=== PATIENT | male | born 1985 | race African-American/Black ===

== ENCOUNTER 2020-12-28 17:35 | Observation (INO) ==
--- NOTE | 2020-12-28 18:12 | CT Scan Report ---
HEAD CT NONCONTRAST CT DOSE: 574.70 mGycm HISTORY: Stroke symptoms. TECHNIQUE: Multiaxial CT images of the head were performed without the use of intravenous contrast. A utomated exposure control was utilized for this study. A dose lowering technique was utilized adheri ng to the principles of ALARA. Comparison: None. Findings: The paranasal sinuses and mastoid air cells are clear. The calvarium and skull base are int act. The ventricles and sulci are within normal limits. There is no mass, hematoma, midline shift, or acute infarct. Impression: No acute intracranial abnormality. ACT 112: Negative or not required by law. Electronically signed by: Homero Castel M.D. 12/28/2020 6:11 PM
[2020-12-28] MEDS ORDERED: OPTIRAY 320 125ml IV ONE (18:14)
--- NOTE | 2020-12-28 18:30 | Emergency Department Note ---
Impression & Plan Right facial numbness, Stroke-like symptoms, Lyme disease, Anemia ED Provider Note NAME: MALLY CHAUDHRY AGE: 35 SEX: M : 1985 ARRIVES VIA: Walk-In INFORMANT: [Patient] ED PROVIDER(S): [Jin Pollard MD] Patient was first seen by me at 1800. CHIEF COMPLAINT: Stroke symptoms HISTORY OF PRESENT ILLNESS: The patient is a 35-year-old male who presents to the ED with potential stroke symptoms. He has had about 15 hours of a right facial numbness and fullness. He noticed it first at around 3 AM. He had a mild headache earlier this morning. He had not taken his blood pressure medication so he took his medication. His symptoms of numbness and heaviness to the right face persisted throughout the day and he presents for evaluation. He really does not have much of a headache anymore. He has no chest pain or shortness of breath. There has been no arm or leg weakness. No difficulty with speech or with his balance. Patient has a history of being quite ill with COVID-19. He was in the ICU ventilated. He was told that he may have had a stroke as a result of the Covid infection and that he had also had a seizure. He was on seizure meds for a while but no longer takes those. The patient was in baseline health last night before going to bed. REVIEW OF SYSTEMS: See HPI for pertinent positives and negatives. A total of ten systems were reviewed and were otherwise negative. PMHx/PSHx: See Below SOCIAL HISTORY: See Below. PHYSICAL EXAM: GENERAL: Patient is in no acute distress. HEENT: No acute trauma, normocephalic atraumatic, mucous membranes moist, no nasal congestion, no scleral icterus. He blinks normally. He can close his eyes without difficulty. The frontalis muscle is intact bilaterally. NECK: No stridor, no adenopathy, no meningismus, trachea is midline. LUNGS: Clear to auscultation bilaterally, no wheeze, no rhonchi, breath sounds equal. HEART: Without murmurs gallops or rubs, regular rate and rhythm. ABDOMEN: Soft, nontender, bowel sounds positive, no hernias, no peritonitis. EXTREMITIES: No cyanosis or edema, full range of motion of all the joints without pain or difficulty, no signs for acute trauma. NEUROLOGIC: Oriented x 3, no acute motor or sensory deficits, no focal weakness. No facial droop or speech slur. No extremity drift, no cerebellar dysfunction. SKIN: No rash, no jaundice, no diaphoresis. DIFFERENTIAL DIAGNOSIS: Infection, dehydration, metabolic abnormality, hypo/hyperglycemia, electrolyte disturbance, anemia, Lyme disease, Waytt's palsy, hypoxia, cardiac sources, intracerebral event, toxicologic issues, stroke, TIA, as well as other pathologies. EMERGENCY DEPARTMENT COURSE/PROCEDURES: ECG: Indication was possible stroke. The ECG shows a normal sinus rhythm with a rate of 75. There is some nonspecific ST change. No concerning ST elevation. No PVCs. The QTc is 433. Continuous Cardiac Monitoring: An order was placed for continuous cardiac monitoring. The monitor shows a rate of 72 with normal sinus rhythm. Critical Care Note: I have personally spent 41 minutes of critical care time in the direct management of this patient. This includes bedside care, inte rpretation of diagnostic studies, and testing, discussion with consultants, patient, and family members, and other required patient management activities. This 41 minutes is in excess of all separately billable procedures. MEDICAL DECISION MAKING: There is no leukocytosis. The patient does have a mild anemia. There is a normal platelet count. No coagulopathy. There was an elevation to the creatinine of 1.68. No significant electrolyte abnormality in need of emergent correction. There were a few subtle liver enzyme elevations however, the bilirubin was normal. ECG showed a sinus rhythm, no acute ischemia. Cardiac enzyme testing x1 is not consistent with acute cardiac injury. Lyme disease testing showed a positive IgM, the IgG was negative. Covid testing returned negative. Brain CT showed no acute bleed or mass-effect. CT angio of the brain and neck were performed, there was no significant stenosis or occlusion. On exam, there were no focal neurologic findings. The patient complained of right facial numbness. There was no facial droop. Patient received IV saline, 1 L. He was given a dose of oral Plavix, 300 mg. The patient was made a stroke alert at triage. The [facility] stroke neurologist did evaluate the patient via telemedicine. She did recommend the Plavix dosing. Patient requires a hospital stay for further stroke work-up. I spoke to the patient, I spoke with case management. The on-call hospitalist was consulted. A small stroke is a consideration for his presentation. Early Wyatt's palsy as a result of Lyme disease is also a possibility. Of note, the patient is not a candidate for TPA, he has had symptoms now for over 15 hours. He is out of the TPA window. Past Med/Surg History Medical History COVID-19 Hypertension Social History Smoking Status: Light tobacco smoker Hx Alcohol Use: Yes Alcohol type: beer Hx Substance Use: No Preferred Language: Turkmen Scientific Affairs Manager Required: No Beliefs That Will Affect Care: None Current Living Situation: Alone Feels Safe at Home: Yes Safety Concerns: Feels Safe At This Time Assistive Devices: None Home Meds Home Medications Medication Instructions Recorded Confirmed amlodipine 10 mg tablet 10 mg PO DAILY 12/28/20 12/28/20 aspirin 81 mg tablet,delayed 81 mg PO DAILY 12/28/20 12/28/20 release (Aspirin Low Dose) atorvastatin 20 mg tablet (Lipitor) 20 mg PO HS 12/28/20 12/28/20 budesonide-formoterol HFA 160 2 puff INHALATION BID 12/28/20 12/28/20 mcg-4.5 mcg/actuation aerosol inhaler (Symbicort) fluticasone propionate 50 1 spray INTRANASAL DAILY 12/28/20 12/28/20 mcg/actuation nasal spray,suspension ibuprofen 200 mg tablet 200 mg PO Q6H PRN 12/28/20 12/28/20 levetiracetam 500 mg tablet 500 mg PO BID 12/28/20 12/28/20 (Keppra) losartan 100 mg tablet 100 mg PO DAILY 12/28/20 12/28/20 melatonin 10 mg disintegrating 10 mg PO HS PRN 12/28/20 12/28/20 tablet metoprolol succinate 100 mg 200 mg PO DAILY 12/28/20 12/28/20 tablet,extended release 24 hr (Toprol XL) multivitamin with minerals-folic 1 tab PO DAILY 12/28/20 12/28/20 acid 200 mcg chewable tablet (Multivitamin Gummies) pantoprazole 40 mg tablet,delayed 40 mg PO BID 12/28/20 12/28/20 release (Protonix) Results & Data (ED) Vital Signs Vital Signs - 24 hr 12/28/20 17:53 12/28/20 18:21 12/28/20 18:25 Temperature 36.9 C Temperature Source Temporal Artery Scan Pulse Rate 74 72 Pulse Rate from SpO2 Sensor Respiratory Rate 18 20 Respiratory Effort / Characteristics Non-Labored Respiratory Depth Normal Blood Pressure 130/79 148/88 H Blood Pressure [Left Arm] Blood Pressure Mean 96 108 Blood Pressure Mean [Left Arm] Pulse Oximetry 98 98 Oxygen Delivery Method Room Air Room Air Sepsis Recent Fever Within 48 Hours No Sepsis New/Unexplained Change in Mental Status No Sepsis Action Taken by Nursing No Action Required 12/28/20 18:26 12/28/20 18:31 12/28/20 18:46 Temperature Temperature Source Pulse Rate 66 69 Pulse Rate from SpO2 Sensor 68 Respiratory Rate 18 Respiratory Effort / Characteristics Respiratory Depth Blood Pressure 146/71 H 159/35 H Blood Pressure [Left Arm] Blood Pressure Mean 96 76 Blood Pressure Mean [Left Arm] Pulse Oximetry 96 99 Oxygen Delivery Method Room Air Room Air Sepsis Recent Fever Within 48 Hours Sepsis New/Unexplained Change in Mental Status Sepsis Action Taken by Nursing 12/28/20 19:01 12/28/20 19:53 12/28/20 20:00 Temperature Temperature Source Pulse Rate 63 54 L 67 Pulse Rate from SpO2 Sensor 64 Respiratory Rate 17 23 Respiratory Effort / Characteristics Respiratory Depth Blood Pressure 129/68 Blood Pressure [Left Arm] Blood Pressure Mean 88 Blood Pressure Mean [Left Arm] Pulse Oximetry 97 Oxygen Delivery Method Room Air Sepsis Recent Fever Within 48 Hours Sepsis New/Unexplained Change in Mental Status Sepsis Action Taken by Nursing 12/28/20 20:08 12/28/20 20:30 12/28/20 21:01 Temperature Temperature Source Pulse Rate 61 63 Pulse Rate from SpO2 Sensor 62 63 Respiratory Rate 22 21 Respiratory Effort / Characteristics Respiratory Depth Blood Pressure 134/78 119/69 Blood Pressure [Left Arm] 119/70 Blood Pressure Mean 96 85 Blood Pressure Mean [Left Arm] 86 Pulse Oximetry 99 98 Oxygen Delivery Method Sepsis Recent Fever Within 48 Hours Sepsis New/Unexplained Change in Mental Status Sepsis Action Taken by Shelter Medications Current Medication List: was personally reviewed by me Laboratory Data Attestation: I reviewed the patient's lab results. Result diagrams: 12/28/20 18:31 12/28/20 18:31 Lab Results 12/28/20 12/28/20 12/28/20 Range/Units 18:31 18:31 18:31 WBC 9.74 (4.8-10.8) K/uL RBC 4.83 (4.7-6.1) M/uL Hgb 12.8 L (14.0-18.0) g/dL POC Hgb (14.0-18.0) g/dl Hct 38.3 L (42-52) % POC Hct (42-52) % MCV 79.3 L (80-100) fL MCH 26.5 (25-34) pg MCHC 33.4 (32-36) g/dL RDW Std Deviation 39.3 (36.4-46.3) fL RDW Coeff of Norris 13.8 (11.5-14.5) % Plt Count 349 (130-400) K/uL MPV 8.9 (7.4-10.4) fL PT 10.8 (9.0-12.0) Seconds INR 1.1 (0.9-1.1) APTT 25.7 (21.0-31.0) Seconds PTT Ratio 1.0 POC Sodium (135-144) mmol/L Sodium 139 (136-145) mmol/L POC Potassium (3.3-5.0) mmol/L Potassium 3.5 (3.5-5.1) mmol/L POC Chloride (101-112) mmol/L Chloride 107 (98-107) mmol/L Carbon Dioxide 26 (21-32) mmol/L POC Total CO2 (24-31) mmol/L Anion Gap 6.0 (3-11) POC Anion Gap (16-25) mmol/L POC BUN (7-18) mg/dl BUN 13 (7-18) mg/dl Creatinine 1.68 H (0.6-1.4) mg/dl POC Creatinine (0.6-1.3) mg/dl Est Cr Clr Drug Dosing 70.9 ml/min Est GFR ( Amer) 59.3 ml/min Est GFR (Non-Af Amer) 51.1 ml/min BUN/Creatinine Ratio 7.5 L (10-20) Glucose 131 H (70-99) mg/dl POC Glucose (other) (70-99) mg/dl Calcium 8.6 (8.5-10.1) mg/dl POC Ioniz Calcium Kris (1.12-1.32) mmol/l Magnesium 2.0 (1.8-2.4) mg/dl Total Bilirubin 0.4 (0.2-1) mg/dl AST 90 H (15-37) U/L ALT 192 H (12-78) U/L Alkaline Phosphatase 72 (45-117) U/L Troponin I < 0.015 (0-0.045) ng/ml Total Protein 7.9 (6.4-8.2) gm/dl Albumin 4.0 (3.4-5.0) gm/dl Globulin 3.9 (2.5-4.0) gm/dl Albumin/Globulin Ratio 1.0 (0.9-2) Lyme Disease IgG Ab (Negative) Lyme Disease IgM Ab (Negative) COVID-19 Eval Order SARS-CoV-2 (PCR) (Negative) 12/28/20 12/28/20 12/28/20 Range/Units 18:31 18:34 18:34 WBC (4.8-10.8) K/uL RBC (4.7-6.1) M/uL Hgb (14.0-18.0) g/dL POC Hgb (14.0-18.0) g/dl Hct (42-52) % POC Hct (42-52) % MCV (80-100) fL MCH (25-34) pg MCHC (32-36) g/dL RDW Std Deviation (36.4-46.3) fL RDW Coeff of Norris (11.5-14.5) % Plt Count (130-400) K/uL MPV (7.4-10.4) fL PT (9.0-12.0) Seconds INR (0.9-1.1) APTT (21.0-31.0) Seconds PTT Ratio POC Sodium (135-144) mmol/L Sodium (136-145) mmol/L POC Potassium (3.3-5.0) mmol/L Potassium (3.5-5.1) mmol/L POC Chloride (101-112) mmol/L Chloride (98-107) mmol/L Carbon Dioxide (21-32) mmol/L POC Total CO2 (24-31) mmol/L Anion Gap (3-11) POC Anion Gap (16-25) mmol/L POC BUN (7-18) mg/dl BUN (7-18) mg/dl Creatinine (0.6-1.4) mg/dl POC Creatinine (0.6-1.3) mg/dl Est Cr Clr Drug Dosing ml/min Est GFR ( Amer) ml/min Est GFR (Non-Af Amer) ml/min BUN/Creatinine Ratio (10-20) Glucose (70-99) mg/dl POC Glucose (other) (70-99) mg/dl Calcium (8.5-10.1) mg/dl POC Ioniz Calcium Kris (1.12-1.32) mmol/l Magnesium (1.8-2.4) mg/dl Total Bilirubin (0.2-1) mg/dl AST (15-37) U/L ALT (12-78) U/L Alkaline Phosphatase (45-117) U/L Troponin I (0-0.045) ng/ml Total Protein (6.4-8.2) gm/dl Albumin (3.4-5.0) gm/dl Globulin (2.5-4.0) gm/dl Albumin/Globulin Ratio (0.9-2) Lyme Disease IgG Ab Negative (Negative) Lyme Disease IgM Ab Positive A (Negative) COVID-19 Eval Order Covid19 at [facility] SARS-CoV-2 (PCR) NEGATIVE (Negative) 12/28/20 Range/Units 18:37 WBC (4.8-10.8) K/uL RBC (4.7-6.1) M/uL Hgb (14.0-18.0) g/dL POC Hgb 13.6 L (14.0-18.0) g/dl Hct (42-52) % POC Hct 40 L (42-52) % MCV (80-100) fL MCH (25-34) pg MCHC (32-36) g/dL RDW Std Deviation (36.4-46.3) fL RDW Coeff of Norris (11.5-14.5) % Plt Count (130-400) K/uL MPV (7.4-10.4) fL PT (9.0-12.0) Seconds INR (0.9-1.1) APTT (21.0-31.0) Seconds PTT Ratio POC Sodium 141 (135-144) mmol/L Sodium (136-145) mmol/L POC Potassium 3.7 (3.3-5.0) mmol/L Potassium (3.5-5.1) mmol/L POC Chloride 101 (101-112) mmol/L Chloride (98-107) mmol/L Carbon Dioxide (21-32) mmol/L POC Total CO2 26 (24-31) mmol/L Anion Gap (3-11) POC Anion Gap 19.0 (16-25) mmol/L POC BUN 13 (7-18) mg/dl BUN (7-18) mg/dl Creatinine (0.6-1.4) mg/dl POC Creatinine 1.5 H (0.6-1.3) mg/dl Est Cr Clr Drug Dosing ml/min Est GFR ( Amer) ml/min Est GFR (Non-Af Amer) ml/min BUN/Creatinine Ratio (10-20) Glucose (70-99) mg/dl POC Glucose (other) 133 H (70-99) mg/dl Calcium (8.5-10.1) mg/dl POC Ioniz Calcium Kris 1.18 (1.12-1.32) mmol/l Magnesium (1.8-2.4) mg/dl Total Bilirubin (0.2-1) mg/dl AST (15-37) U/L ALT (12-78) U/L Alkaline Phosphatase (45-117) U/L Troponin I (0-0.045) ng/ml Total Protein (6.4-8.2) gm/dl Albumin (3.4-5.0) gm/dl Globulin (2.5-4.0) gm/dl Albumin/Globulin Ratio (0.9-2) Lyme Disease IgG Ab (Negative) Lyme Disease IgM Ab (Negative) COVID-19 Eval Order SARS-CoV-2 (PCR) (Negative) Administered Medications Discontinued Medications Clopidogrel Bisulfate (Clopidogrel Bisulfate 300 Mg Tab) 300 mg PO NOW STA Stop: 12/28/20 19:54 Last Admin: 12/28/20 20:07 Dose: 300 mg Documented by: [id number] Sodium Chloride (Nss 1000ml) 1,000 mls @ 999 mls/hr IV .Q1H1M ONE Stop: 12/28/20 20:09 Last Infusion: 12/28/20 20:48 Dose: 0 mls/hr Documented by: [id number] Admin: 12/28/20 19:27 Dose: 999 mls/hr Documented by: [id number] Ceftriaxone Sodium (Rocephin) 2,000 mg in 70 mls @ 140 mls/hr IV NOW STA Stop: 12/28/20 21:41 Last Infusion: 12/28/20 22:21 Dose: 0 mls/hr Documented by: [id number] Admin: 12/28/20 21:22 Dose: 140 mls/hr Documented by: [id number] Ioversol (Optiray 320 125ml) 119 ml IV ONCE ONE Stop: 12/28/20 18:15 Last Admin: 12/28/20 18:15 Dose: 1 ml Documented by: [id number] Imaging Data Radiologist's Impression: Chest X-Ray 12/28/20 17:58 XR chest 1V portable HISTORY: Stroke symptoms. COMPARISON: None. FINDINGS: The lungs are clear. Cardiac silhouette is top normal in size. No pleural effusions. No pneumothorax. IMPRESSION: No acute process. ACT 112: Negative or not required by law. Electronically signed by: Homero Castle M.D. 12/28/2020 6:[address] 12/28/20 17:[address] DOSE: 574.70 mGycm HISTORY: Stroke symptoms. TECHNIQUE: Multiaxial CT images of the head were performed without the use of intravenous contrast. Automated exposure control was utilized for this study. A dose lowering technique was utilized adhering to the principles of ALARA. Comparison: None. Findings: The paranasal sinuses and mastoid air cells are clear. The calvarium and skull base are intact. The ventricles and sulci are within normal limits. There is no mass, hematoma, midline shift, or acute infarct. Impression: No acute intracranial abnormality. ACT 112: Negative or not required by law. Electronically signed by: Homero Castle M.D. 12/28/2020 6:11 PM Head CTA 12/28/20 18:02 HEAD & NECK CTA HISTORY: Stroke symptoms. TECHNIQUE: Multiaxial CT images of the head were performed following the intravenous administration of contrast to evaluate the major cerebral vessels. Multiaxial CT images of the neck were also performed following the intravenous administration of contrast to evaluate the major cervical vessels. Maximum i ntensity projection images were also obtained. A dose lowering technique was utilized adhering to the principles of ALARA. COMPARISON: Noncontrast head CT 12/28/2020. FINDINGS: There is no mass, hematoma, midline shift, or acute infarct. Visualized intracranial internal carotid arteries, distal vertebral arteries, and basilar artery are widely patent. There is no significant stenosis, occlusion, or aneurysm seen within the bilateral ACAs, MCAs, or merchandise executive. The aortic arch and proximal great vessels are widely patent. There is no significant stenosis, occlusion, or dissection identified within the bilateral common carotid, internal carotid, or vertebral arteries. The major dural venous sinuses are patent. IMPRESSION: 1. No significant stenosis, occlusion, or aneurysm within the three [place] of [place]. 2. No significant stenosis, occlusion, or dissection identified within the carotid or vertebral arteries. ACT 112: Negative or not required by law. Electronically signed by: Homero Castle M.D. 12/28/2020 6:32 PM Neck CTA 12/28/20 18:02 HEAD & NECK CTA HISTORY: Stroke symptoms. TECHNIQUE: Multiaxial CT images of the head were performed following the intravenous administration of contrast to evaluate the major cerebral vessels. Multiaxial CT images of the neck were also performed following the intravenous administration of contrast to evaluate the major cervical vessels. Maximum intensity projection images were also obtained. A dose lowering technique was utilized adhering to the principles of ALARA. COMPARISON: Noncontrast head CT 12/28/2020. FINDINGS: There is no mass, hematoma, midline shift, or acute infarct. Visualized intrac ranial internal carotid arteries, distal vertebral arteries, and basilar artery are widely patent. There is no significant stenosis, occlusion, or aneurysm seen within the bilateral ACAs, MCAs, or merchandise executive. The aortic arch and proximal great vessels are widely patent. There is no significant stenosis, occlusion, or dissection identified within the bilateral common carotid, internal carotid, or vertebral arteries. The major dural venous sinuses are patent. IMPRESSION: 1. No significant stenosis, occlusion, or aneurysm within the three affiliated of [place]. 2. No significant stenosis, occlusion, or dissection identified within the carotid or vertebral arteries. ACT 112: Negative or not required by law. Electronically signed by: Homero Castle M.D. 12/28/2020 6:32 PM Discharge Plan Visit Data Chief Complaint: Stroke/CVA Symptoms Stated Complaint: SOB, LEFT SIDE OF FACE HURTS, HEADACHE ED Provider: Jin Pollard Discharge Problem: Right facial numbness, Stroke-like symptoms, Lyme disease, Anemia Patient Disposition: Admitted As Inpatient Condition: Fair
--- NOTE | 2020-12-28 18:34 | CT Scan Report ---
HEAD & NECK CTA HISTORY: Stroke symptoms. TECHNIQUE: Multiaxial CT images of the head were performed following the intravenous administration o f contrast to evaluate the major cerebral vessels. Multiaxial CT images of the neck were also perform ed following the intravenous administration of contrast to evaluate the major cervical vessels. Maxim um intensity projection images were also obtained. A dose lowering technique was utilized adhering to the principles of ALARA. COMPARISON: Noncontrast head CT 12/28/2020. FINDINGS: There is no mass, hematoma, midline shift, or acute infarct. Visualized intracranial internal carotid arteries, distal vertebral arteries, and basilar artery are widely patent. There is no significant s tenosis, occlusion, or aneurysm seen within the bilateral ACAs, MCAs, or senior clinical study manager. The aortic arch and proximal great vessels are widely patent. There is no significant stenosis, occ lusion, or dissection identified within the bilateral common carotid, internal carotid, or vertebral arteries. The major dural venous sinuses are patent. IMPRESSION: 1. No significant stenosis, occlusion, or aneurysm within the [place]. 2. No significant stenosis, occlusion, or dissection identified within the carotid or vertebral arter ies. ACT 112: Negative or not required by law. Electronically signed by: Homero Castle M.D. 12/28/2020 6:32 PM
--- NOTE | 2020-12-28 18:34 | CT Scan Report ---
HEAD & NECK CTA HISTORY: Stroke symptoms. TECHNIQUE: Multiaxial CT images of the head were performed following the intravenous administration o f contrast to evaluate the major cerebral vessels. Multiaxial CT images of the neck were also perform ed following the intravenous administration of contrast to evaluate the major cervical vessels. Maxim um intensity projection images were also obtained. A dose lowering technique was utilized adhering to the principles of ALARA. COMPARISON: Noncontrast head CT 12/28/2020. FINDINGS: There is no mass, hematoma, midline shift, or acute infarct. Visualized intracranial internal carotid arteries, distal vertebral arteries, and basilar artery are widely patent. There is no significant s tenosis, occlusion, or aneurysm seen within the bilateral ACAs, MCAs, or counter checker. The aortic arch and proximal great vessels are widely patent. There is no significant stenosis, occ lusion, or dissection identified within the bilateral common carotid, internal carotid, or vertebral arteries. The major dural venous sinuses are patent. IMPRESSION: 1. No significant stenosis, occlusion, or aneurysm within the [place]. 2. No significant stenosis, occlusion, or dissection identified within the carotid or vertebral arter ies. ACT 112: Negative or not required by law. Electronically signed by: Homero Castle M.D. 12/28/2020 6:32 PM
--- NOTE | 2020-12-28 18:44 | XRay Report ---
XR chest 1V portable HISTORY: Stroke symptoms. COMPARISON: None. FINDINGS: The lungs are clear. Cardiac silhouette is top normal in size. No pleural effusions. No pne umothorax. IMPRESSION: No acute process. ACT 112: Negative or not required by law. Electronically signed by: Homero Castle M.D. 12/28/2020 6:43 PM
[2020-12-28 18:47] LABS: Hematocrit (blood only) 38.3 % (42-52); Hemoglobin 12.8 g/dL (14.0-18.0); Mean Corpuscular Hemoglobin 26.5 pg (25-34); Mean Corpuscular Hgb Conc 33.4 g/dL (32-36); Mean Corpuscular Volume 79.3 fL (80-100); Mean Platelet Volume 8.9 fL (7.4-10.4); Platelet Count 349 K/uL (130-400); RDW Coefficient of Variation 13.8 % (11.5-14.5); RDW Standard Deviation 39.3 fL (36.4-46.3); Red Blood Count 4.83 M/uL (4.7-6.1); White Blood Count 9.74 K/uL (4.8-10.8)
[2020-12-28 18:50] LABS: iSTAT Creatinine 1.5 mg/dl (0.6-1.3); iSTAT Hemoglobin 13.6 g/dl (14.0-18.0); iSTAT Ionized Calcium 1.18 mmol/l (1.12-1.32); iSTAT Potassium 3.7 mmol/L (3.3-5.0)
[2020-12-28 18:57] LABS: INR 1.1 (0.9-1.1); Partial Thromboplastin Time 25.7 Seconds (21.0-31.0); Prothrombin Time 10.8 Seconds (9.0-12.0)
[2020-12-28 19:08] LABS: Alanine Aminotransferase 192 U/L (12-78); Aspartate Aminotransferase 90 U/L (15-37); BUN Creatinine Ratio 7.5 (10-20); Blood Urea Nitrogen 13 mg/dl (7-18); Calcium 8.6 mg/dl (8.5-10.1); Carbon Dioxide 26 mmol/L (21-32); Chloride 107 mmol/L (98-107); Creatinine Clr Calc Pharmacy 70.9 ml/min; Est GFR (African American) 59.3 ml/min; Est GFR (Non-African American) 51.1 ml/min; Glucose 131 mg/dl (70-99); Potassium 3.5 mmol/L (3.5-5.1); Sodium 139 mmol/L (136-145)
[2020-12-28] MEDS ORDERED: SODIUM CHLORIDE 0.9% 1000ML 1,000 ML IV ONE (19:09)
[2020-12-28 19:11] LABS: Alkaline Phosphatase 72 U/L (45-117); Bilirubin,Total 0.4 mg/dl (0.2-1); Globulin 3.9 gm/dl (2.5-4.0); Total Protein 7.9 gm/dl (6.4-8.2)
[2020-12-28 19:19] LABS: Troponin I < 0.015 ng/ml (0-0.045)
[2020-12-28] MEDS ORDERED: CLOPIDOGREL BISULFATE 300 MG TAB PO STA (19:53)
[2020-12-28 19:59] LABS: Lyme Ab IgG w/WB Rflx Negative (Negative)
[2020-12-28 20:14] LABS: Lyme Ab IgM w/WB Rflx Positive (Negative)
[2020-12-28] MEDS ORDERED: cefTRIAXone SODIUM 2,000 MG/70 ML BAG IV STA (21:12)
--- NOTE | 2020-12-28 21:13 | History & Physical Report ---
Date of Service December 28, 2020 Assessment & Plan (1) Acute Lyme disease: Plan: IgM positive, IgG negative in the ED this evening May completely explain patient's symptoms. Place on ceftriaxone [address] on doxycycline 100 mg p.o. twice daily (2) Stroke-like symptoms: Plan: Patient presented to the ED with symptoms suggestive of stroke and began as a stroke alert. We will admit to monitored bed for stroke without TPA order set Order MRI brain without contrast Consult PT/OT/speech/neurology Neurochecks As noted above, symptoms may be completely related to acute Lyme disease, and will be determined by response to treatment (3) Right facial numbness: Plan: See above Symptoms have improved significantly while in the ED (4) Hyperlipidemia: Plan: Continue atorvastatin 20 mg at bedtime. Check a fasting lipid panel (5) Asthma: Plan: Continue Symbicort (6) Hypertension: Plan: Continue amlodipine, losartan and metoprolol succinate with hold parameters (7) Seizure disorder: Plan: Continue Keppra (8) GERD (gastroesophageal reflux disease): Plan: Continue pantoprazole (9) Insomnia: Plan: Continue melatonin History of Present Illness Chief Complaint: The patient presented to the emergency department as a stroke alert due to right facial numbness and fullness that was initially noted around 3 AM, and accompanied by a mild headache. Primary Care Provider: NO PCP The patient is a 35-year-old male with a past medical history including hypertension, hyperlipidemia, asthma, seizure disorder, and GERD. He also has a significant history of a 3-week intensive care stay in [facility] due to COVID-19 pneumonia, where he was intubated and reportedly had multiorgan system failure. He reports his laboratories and general health have completely recovered, and review of his lab work on his phone showed normal laboratories including a creatinine of 1.04. Work-up in the emergency department included a CT of head without contrast which was negative. CTA of head neck was negative. Significant laboratories: Hemoglobin 12.8, hematocrit 38.3, creatinine 1.68, glucose 131, AST 90, ALT 192. Lyme disease IgM antibody was positive, Lyme IgG was negative. COVID-19 test was negative Allergies Allergy/AdvReac Type Severity Reaction Status Date / Time No Known Allergies Allergy Verified 12/28/20 23:26 Home Medications Medication Instructions Recorded Confirmed Type amlodipine 10 mg tablet 10 mg PO DAILY 12/28/20 12/28/20 History aspirin 81 mg tablet,delayed 81 mg PO DAILY 12/28/20 12/28/20 History release (Aspirin Low Dose) atorvastatin 20 mg tablet (Lipitor) 20 mg PO HS 12/28/20 12/28/20 History budesonide-formoterol HFA 160 2 puff INHALATION BID 12/28/20 12/28/20 History mcg-4.5 mcg/actuation aerosol inhaler (Symbicort) fluticasone propionate 50 1 spray INTRANASAL DAILY 12/28/20 12/28/20 History mcg/actuation nasal spray,suspension ibuprofen 200 mg tablet 200 mg PO Q6H PRN 12/28/20 12/28/20 History levetiracetam 500 mg tablet 500 mg PO BID 12/28/20 12/28/20 History (Keppra) losartan 100 mg tablet 100 mg PO DAILY 12/28/20 12/28/20 History melatonin 10 mg disintegrating 10 mg PO HS PRN 12/28/20 12/28/20 History tablet metoprolol succinate 100 mg 200 mg PO DAILY 12/28/20 12/28/20 History tablet,extended release 24 hr (Toprol XL) multivitamin with minerals-folic 1 tab PO DAILY 12/28/20 12/28/20 History acid 200 mcg chewable tablet (Multivitamin Gummies) pantoprazole 40 mg tablet,delayed 40 mg PO BID 12/28/20 12/28/20 History release (Protonix) Past Med/Surg History Medical History (Updated 12/29/20 @ 02:54 by Ronald Frazier MD) Allergic rhinitis Asthma COVID-19 GERD (gastroesophageal reflux disease) Hyperlipidemia Hypertension Insomnia Seizure disorder Social History Smoking Status: Light tobacco smoker Hx Alcohol Use: Yes Alcohol type: beer Hx Substance Use: No Preferred Language: Hungarian [employer] Required: No Beliefs That Will Affect Care: None Current Living Situation: Alone Feels Safe at Home: Yes Safety Concerns: Feels Safe At This Time Assistive Devices: None Review of Systems Review of Systems: The patient denies chest pain, palpitations, shortness of breath, dyspnea on exertion, cough, lower extremity swelling, sore throat, fevers, chills, sweats, nausea, vomiting, diarrhea , constipation, abdominal pain, pelvic pain, blood in urine or stool, dysuria, urinary frequency or urgency, memory loss, loss of consciousness, rash, abnormal bruising or bleeding, imbalance, focal or generalized weakness, numbness or tingling in arms or legs, generalized arthralgias or myalgias, back or neck pain, or night sweats. The review of systems is otherwise negative other than for that already noted above, and at least 10 systems have been reviewed. Physical Exam Physical Exam: The patient is awake, alert and oriented 3, well developed and well nourished, normocephalic and atraumatic, lying in bed and in no acute distress. HEENT--PERRL, EOMI, mucous membranes and oropharynx normal. Neck--supple. No JVD. No bruits. Thyroid normal, trachea midline, no adenopathy. Heart--normal S1 and S2. No murmurs, rubs or gallops. Lungs--clear bilaterally, no respiratory distress, no accessory muscle use. Abdomen--normal bowel sounds and soft. Nontender. Nondistended, no hernias or masses, no organomegaly. Extremities--no cyanosis or clubbing. No edema. Dermatologic--normal skin turgor, normal color, no abnormal lymph nodes, no rash. Neurologic--cranial nerves II through XII grossly intact. Normal sensory and motor exam Rheumatologic--normal range of motion. Psychiatric--normal affect. Results & Data Results & Data ([facility]) Vital Signs (Past 12 Hours) Vital Signs Temp Pulse Resp BP BP Pulse Ox 12/28/20 20:08 119/70 12/28/20 20:00 67 23 12/28/20 19:53 54 L 17 12/28/20 19:01 63 129/68 97 12/28/20 18:46 69 159/35 H 99 12/28/20 18:31 66 18 146/71 H 96 12/28/20 18:25 72 20 148/88 H 98 12/28/20 17:53 98.4 F 74 18 130/79 98 Laboratory Results Laboratory Results WBC 9.74 K/uL (4.8-10.8) 12/28/20 18:31 RBC 4.83 M/uL (4.7-6.1) 12/28/20 18:31 Hgb 12.8 g/dL (14.0-18.0) L 12/28/20 18:31 POC Hgb 13.6 g/dl (14.0-18.0) L 12/28/20 18:37 Hct 38.3 % (42-52) L 12/28/20 18:31 POC Hct 40 % (42-52) L 12/28/20 18:37 MCV 79.3 fL (80-100) L 12/28/20 18:31 MCH 26.5 pg (25-34) 12/28/20 18:31 MCHC 33.4 g/dL (32-36) 12/28/20 18: RDW Std Deviation 39.3 fL (36.4-46.3) 12/28/20 18: RDW Coeff of Norris 13.8 % (11.5-14.5) 12/28/20 18: Plt Count 349 K/uL (130-400) 12/28/20 18:31 MPV 8.9 fL (7.4-10.4) 12/28/20 18:31 PT 10.8 Seconds (9.0-12.0) 12/28/20 18:31 INR 1.1 (0.9-1.1) 12/28/20 18:31 APTT 25.7 Seconds (21.0-31.0) 12/28/20 18:31 PTT Ratio 1.0 12/28/20 18:31 POC Sodium 141 mmol/L (135-144) 12/28/20 18:37 Sodium 139 mmol/L (136-145) 12/28/20 18:31 POC Potassium 3.7 mmol/L (3.3-5.0) 12/28/20 18:37 Potassium 3.5 mmol/L (3.5-5.1) 12/28/20 18:31 POC Chloride 101 mmol/L (101-112) 12/28/20 18:37 Chloride 107 mmol/L (98-107) 12/28/20 18:31 Carbon Dioxide 26 mmol/L (21-32) 12/28/20 18:31 POC Total CO2 26 mmol/L (24-31) 12/28/20 18:37 Anion Gap 6.0 (3-11) 12/28/20 18:31 POC Anion Gap 19.0 mmol/L (16-25) 12/28/20 18:37 POC BUN 13 mg/dl (7-18) 12/28/20 18:37 BUN 13 mg/dl (7-18) 12/28/20 18:31 Creatinine 1.68 mg/dl (0.6-1.4) H 12/28/20 18:31 POC Creatinine 1.5 mg/dl (0.6-1.3) H 12/28/20 18:37 Est Cr Clr Drug Dosing 70.9 ml/min 12/28/20 18:31 Est GFR ( Amer) 59.3 ml/min 12/28/20 18:31 Est GFR (Non-Af Amer) 51.1 ml/min 12/28/20 18:31 BUN/Creatinine Ratio 7.5 (10-20) L 12/28/20 18:31 Glucose 131 mg/dl (70-99) H 12/28/20 18:31 POC Glucose (other) 133 mg/dl (70-99) H 12/28/20 18:37 Calcium 8.6 mg/dl (8.5-10.1) 12/28/20 18:31 POC Ioniz Calcium Kris 1.18 mmol/l (1.12-1.32) 12/28/20 18:37 Magnesium 2.0 mg/dl (1.8-2.4) 12/28/20 18:31 Total Bilirubin 0.4 mg/dl (0.2-1) 12/28/20 18:31 AST 90 U/L (15-37) H 12/28/20 18:31 ALT 192 U/L (12-78) H 12/28/20 18:31 Alkaline Phosphatase 72 U/L (45-117) 12/28/20 18:31 Troponin I < 0.015 ng/ml (0-0.045) 12/28/20 18:31 Total Protein 7.9 gm/dl (6.4-8.2) 12/28/20 18:31 Albumin 4.0 gm/dl (3.4-5.0) 12/28/20 18:31 Globulin 3.9 gm/dl (2.5-4.0) 12/28/20 18:31 Albumin/Globulin Ratio 1.0 (0.9-2) 12/28/20 18:31 Lyme Disease IgG Ab Negative (Negative) 12/28/20 18:31 Lyme Disease IgM Ab Positive (Negative) A 12/28/20 18:31 COVID-19 Eval Order Covid19 at [facility] [place] 12/28/20 18:34 SARS-CoV-2 (PCR) NEGATIVE (Negative) 12/28/20 18:34 Impressions Chest X-Ray 12/28/20 17:58 XR chest 1V portable HISTORY: Stroke symptoms. COMPARISON: None. FINDINGS: The lungs are clear. Cardiac silhouette is top normal in size. No pleural effusions. No pneumothorax. IMPRESSION: No acute process. ACT 112: Negative or not required by law. Electronically signed by: Homero Castle M.D. 12/28/2020 6:[address] 12/28/20 17:[address] DOSE: 574.70 mGycm HISTORY: Stroke symptoms. TECHNIQUE: Multiaxial CT images of the head were performed without the use of intravenous contrast. Automated exposure control was utilized for this study. A dose lowering technique was utilized adhering to the principles of ALARA. Comparison: None. Findings: The paranasal sinuses and mastoid air cells are clear. The calvarium and skull base are intact. The ventricles and sulci are within normal limits. There is no mass, hematoma, midline shift, or acute infarct. Impression: No acute intracranial abnormality. ACT 112: Negative or not required by law. Electronically signed by: Homero Castle M.D. 12/28/2020 6:11 PM Head CTA 12/28/20 18:02 HEAD & NECK CTA HISTORY: Stroke symptoms. TECHNIQUE: Multiaxial CT images of the head were performed following the intravenous administration of contrast to evaluate the major cerebral vessels. Multiaxial CT images of the neck were also performed following the intravenous administration of contrast to evaluate the major cervical vessels. Maximum intensity projection images were also obtained. A dose lowering technique was utilized adhering to the principles of ALARA. COMPARISON: Noncontrast head CT 12/28/2020. FINDINGS: There is no mass, hematoma, midline shift, or acute infarct. Visualized intracranial internal carotid arteries, distal vertebral arteries, and basilar artery are widely patent. 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 The aortic arch and proximal great vessels are widely patent. There is no significant stenosis, occlusion, or dissection identified within the bilateral common carotid, internal carotid, or vertebral arteries. The major dural venous sinuses are patent. IMPRESSION: 1. No significant stenosis, occlusion, or aneurysm within the [place]. 2. No significant stenosis, occlusion, or dissection identified within the carotid or vertebral arteries. ACT 112: Negative or not required by law. Electronically signed by: Homero Castle M.D. 12/28/2020 6:32 PM Neck CTA 12/28/20 18:02 HEAD & NECK CTA HISTORY: Stroke symptoms. TECHNIQUE: Multiaxial CT images of the head were performed following the intravenous administration of contrast to evaluate the major cerebral vessels. Multiaxial CT images of the neck were also performed following the intravenous administration of contrast to evaluate the major cervical vessels. Maximum intensity projection images were also obtained. A dose lowering technique was utilized adhering to the principles of ALARA. COMPARISON: Noncontrast head CT 12/28/2020. FINDINGS: There is no mass, hematoma, midline shift, or acute infarct. Visualized intracranial internal carotid arteries, distal vertebral arteries, and basilar artery are widely patent. 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 The aortic arch and proximal great vessels are widely patent. There is no significant stenosis, occlusion, or dissection identified within the bilateral common carotid, internal carotid, or vertebral arteries. The major dural venous sinuses are patent. IMPRESSION: 1. No significant stenosis, occlusion, or aneurysm within the [place]. 2. No significant stenosis, occlusion, or dissection identified within the carotid or vertebral arteries. ACT 112: Negative or not required by law. Electronically signed by: Homero Castle M.D. 12/28/2020 6:32 PM Code Status & VTE Plan Code Status Full code VTE Prophylaxis Plan VTE Prophylaxis will be ordered: Yes PG Care Time/CCT Total # of Minutes Spent Total Time Spent with Patient: Total time spent is greater than 50% in coordination of care (as documented) at patient's floor/unit and/or counseling patient: Coding Level of Care Code INT OBSERVATION CARE 70M LVL 3 Diagnoses Acute Lyme disease A69.20 Hyperlipidemia E78.5 Asthma J45.909 Hypertension I10 Right facial numbness R20.0 Seizure disorder G40.909 GERD (gastroesophageal reflux disease) K21.9 Insomnia G47.00 Stroke-like symptoms R29.90
[2020-12-28] MEDS ORDERED: ACETAMINOPHEN 325 MG TAB PO PRN (22:50)
[2020-12-28] MEDS ORDERED: ONDANSETRON INJ 2 MG/ML 2 ML VIAL IV PRN (22:50)
[2020-12-28] MEDS ORDERED: PHARMACIST DISCHARGE MED REC CONSULT PRN (22:50)
[2020-12-28] MEDS ORDERED: MELATONIN 3 MG TAB PO PRN (23:29)
[2020-12-28] MEDS ORDERED: FLUTICASONE/VILANTEROL 200/25MCG 14 PUFFS/INHALER INH SCH (23:30)
[2020-12-28] MEDS: DOXYCYCLINE HYCLATE 100 MG CAP PO SCH (23:53)
[2020-12-28] MEDS: PANTOprazole 40 MG TAB PO SCH (23:53)
[2020-12-28] MEDS: levETIRAcetam 500 MG TAB PO SCH (23:54)
[2020-12-28] MEDS: SODIUM CHLORIDE 0.9% 1000ML 1,000 ML IV SCH (23:56)
[2020-12-29 06:28] LABS: Basophils # (auto) 0.07 K/uL (0-0.2); Basophils % (auto) 0.8 %; Eosinophils # (auto) 0.84 K/uL (0-0.5); Hemoglobin 12.4 g/dL (14.0-18.0); Immature Granulocytes # (auto) 0.01 K/uL (0.00-0.02); Immature Granulocytes % (auto) 0.1 %; Lymphocytes # (auto) 2.66 K/uL (1.2-3.4); Lymphocytes % (auto) 31.8 %; Mean Corpuscular Hemoglobin 26.4 pg (25-34); Mean Corpuscular Hgb Conc 32.6 g/dL (32-36); Mean Platelet Volume 9.2 fL (7.4-10.4); Monocytes % (auto) 4.8 %; Neutrophils # (auto) 4.39 K/uL (1.4-6.5); Neutrophils % (auto) 52.5 %; Platelet Count 351 K/uL (130-400); RDW Coefficient of Variation 14.1 % (11.5-14.5); RDW Standard Deviation 41.7 fL (36.4-46.3); Red Blood Count 4.69 M/uL (4.7-6.1); White Blood Count 8.37 K/uL (4.8-10.8)
[2020-12-29 06:58] LABS: Calcium 8.4 mg/dl (8.5-10.1); Potassium 3.4 mmol/L (3.5-5.1)
[2020-12-29 07:10] LABS: Estimated Average Glucose 183 mg/dl
[2020-12-29 07:18] LABS: BUN Creatinine Ratio 12.7 (10-20); Creatinine Clr Calc Pharmacy 110.4 ml/min; Est GFR (African American) 103.4 ml/min; Est GFR (Non-African American) 89.2 ml/min
[2020-12-29] MEDS: PANTOprazole 40 MG TAB PO SCH (08:22)
[2020-12-29] MEDS: levETIRAcetam 500 MG TAB PO SCH (08:22)
[2020-12-29] MEDS: SODIUM CHLORIDE 0.9% 1000ML 1,000 ML IV SCH (08:27)
--- NOTE | 2020-12-29 08:56 | Hospitalist Progress Note ---
Date of Service December 29, 2020 Assessment & Plan (1) Acute Lyme disease: Plan: IgM positive, IgG negative in the ED this evening May completely explain patient's symptoms. Place on ceftriaxone [address] on doxycycline 100 mg p.o. twice daily (2) Stroke-like symptoms: Plan: Patient presented to the ED with symptoms suggestive of stroke and began as a stroke alert. We will admit to monitored bed for stroke without TPA order set Order MRI brain without contrast Consult PT/OT/speech/neurology Neurochecks As noted above, symptoms may be completely related to acute Lyme disease, and will be determined by response to treatment (3) Right facial numbness: Plan: See above Symptoms have improved significantly while in the ED (4) Hyperlipidemia: Plan: Continue atorvastatin 20 mg at bedtime. Check a fasting lipid panel (5) Asthma: Plan: Continue Symbicort (6) Hypertension: Plan: Continue amlodipine, losartan and metoprolol succinate with hold parameters (7) Seizure disorder: Plan: Continue Keppra (8) GERD (gastroesophageal reflux disease): Plan: Continue pantoprazole (9) Insomnia: Plan: Continue melatonin Admission and Anticipated Discharge Date Admission Date: December 28, 2020 Results & Data Results & Data ([facility]) Vital Signs (Past 12 Hours) Vital Signs Temp Pulse Pulse Resp BP BP BP 12/29/20 07:53 69 12/29/20 07:37 97.7 F 59 L 18 113/60 12/29/20 03:38 97.7 F 58 L 18 108/68 12/28/20 22:35 97.7 F 62 17 125/71 12/28/20 22:01 57 L 17 111/64 12/28/20 21:30 56 L 23 139/68 12/28/20 21:01 63 21 119/69 Pulse Ox 12/29/20 07:53 12/29/20 07:37 96 12/29/20 03:38 98 12/28/20 22:35 98 12/28/20 22:01 99 12/28/20 21:30 97 12/28/20 21:01 98 PG Care Time/CCT Total # of Minutes Spent Total Time Spent with Patient: Total time spent is greater than 50% in coordination of care (as documented) at patient's floor/unit and/or counseling patient: Coding Diagnoses Acute Lyme disease A69.20 Stroke-like symptoms R29.90 Right facial numbness R20.0 Hyperlipidemia E78.5 Asthma J45.909 Hypertension I10 Seizure disorder G40.909 GERD (gastroesophageal reflux disease) K21.9 Insomnia G47.00
[2020-12-29] MEDS ORDERED: amLODIPine BESYLATE 5 MG TAB PO SCH (09:00)
[2020-12-29] MEDS ORDERED: POTASSIUM CHLORIDE CRTAB 20 MEQ TABCR PO SCH (09:00)
[2020-12-29] MEDS ORDERED: CEROVITE ADV FORMULA TAB PO SCH (09:00)
[2020-12-29] MEDS ORDERED: ASPIRIN 81 MG ECTAB PO SCH (09:00)
[2020-12-29] MEDS ORDERED: METOPROLOL SUCC 50MG EXT REL TAB PO SCH (09:00)
--- NOTE | 2020-12-29 09:00 | Neurology Consultation ---
Date of Consultation December 29, 2020 Assessment & Plan (1) Stroke-like symptoms: This patient awoke yesterday morning with a feeling of right facial swelling/fullness and associated headache. He did not have any associated facial weakness or weakness of the limbs. He may have had some associated sensory disturbance but denies true numbness. His symptoms have completely resolved. He has an intact neurological examination. He does appear to have diabetes mellitus based on a recent hemoglobin A1c. It does not look like he is taking any medication for hyperglycemia. He is on several antihypertensives, his blood pressure today is normal and appropriate. He does have hyperlipidemia and is taking Lipitor. Looks like he was already taking daily low-dose aspirin and this medication has been continued. Patient was found to have a positive Lyme IgM antibody and may have acute Lyme disease. He is currently receiving Rocephin. He does not have other symptoms suggestive of Lyme disease, however, as is her arthralgia, erythema migrans, or other systemic symptoms. He does inform you that he spends a significant amount of time outside and may be at risk for Lyme although does not specifically recall a tick bite recently. Patient should complete the previously recommended stroke evaluation including MRI of the brain and echocardiogram. If the brain MRI does not reveal any evidence of acute or subacute stroke there would be no reason to change his antiplatelet regimen. Patient will need additional outpatient follow-up with a primary care provider for management of probable diabetes mellitus and other cardiovascular risk factors including hypertension and hyperlipidemia. There is not appear to be any reason for him to continue with Keppra and it sounds like he does not take this medication any longer. I doubt his presentation was related to a seizure. Would not recommend an EEG at this time. Would probably be reasonable to continue antimicrobial therapy for Lyme disease until his Lyme Western blot comes back. Should be able to continue with doxycycline as an outpatient. 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 Again, review brain MRI when available. Case discussed with Dr. Krause. Please contact me if I may be of further assistance. History of Present Illness Reason for Consultation: Right facial numbness, acute Lyme, stroke alert Requesting Physician: Ronald Frazier MD Attending Physician: Anshul Krause MD History of Present Illness The patient is a 35-year-old male with a chief complaint of a feeling of right facial fullness/swelling that he noted upon awakening yesterday morning. He had some associated cephalgia as well, primarily right-sided, but radiating across the top of the head. The symptoms persisted prompting further evaluation in the emergency department. He does not recall experiencing any difficulty with opening or closing the eyes, facial droop, or weakness of the limbs. The patient did not have obvious neurological deficits during his assessment in the emergency department. He did have a telestroke consultation with a specialist at [facility] who after reviewing his case recommended admission to the hospital for further evaluation and management. He was placed on Plavix. Past medical history notable for critical illness related to COVID-19 infection this past July which required a prolonged hospitalization at a hospital in [place]. He informs me that he had an adverse reaction to anesthetics at that time, seizures, and was temporarily treated with Keppra, he no longer takes this medication. Patient denies a history of seizure disorder. History also notable for diabetes mellitus although he does not take specific medication for this issue. History also notable for hypertension although patient admits that he is sometimes noncompliant with his antihypertensives. 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 His job requires him to travel quite a bit. Outpatient medications appear to include daily low-dose aspirin, atorvastatin, and several antihypertensives. Patient admits that his medication list may need to be updated. Again, he no longer takes anticonvulsant. This morning, the patient indicates that he is feeling fine, no residual facial fullness or headache. He denies experiencing any numbness, weakness, or other worrisome neurological symp toms. He did have a CT of the head and CT angiogram of the head and neck completed during his initial assessment in the emergency department. The studies were unremarkable. I did review the images as well as the radiologist interpretation of these tests and agree. No pathology. Labs of note include a hemoglobin A1c of 8.0, elevation in transaminases, and a positive Lyme disease IgM antibody screen. Patient is currently receiving Rocephin. Allergies Allergy/AdvReac Type Severity Reaction Status Date / Time No Known Allergies Allergy Verified 12/28/20 23:26 Home Medications Medication Instructions Recorded Confirmed Type amlodipine 10 mg tablet 10 mg PO DAILY 12/28/20 12/28/20 History aspirin 81 mg tablet,delayed 81 mg PO DAILY 12/28/20 12/28/20 History release (Aspirin Low Dose) atorvastatin 20 mg tablet (Lipitor) 20 mg PO HS 12/28/20 12/28/20 History budesonide-formoterol HFA 160 2 puff INHALATION BID 12/28/20 12/28/20 History mcg-4.5 mcg/actuation aerosol inhaler (Symbicort) fluticasone propionate 50 1 spray INTRANASAL DAILY 12/28/20 12/28/20 History mcg/actuation nasal spray,suspension ibuprofen 200 mg tablet 200 mg PO Q6H PRN 12/28/20 12/28/20 History levetiracetam 500 mg tablet 500 mg PO BID 12/28/20 12/28/20 History (Keppra) losartan 100 mg tablet 100 mg PO DAILY 12/28/20 12/28/20 History melatonin 10 mg disintegrating 10 mg PO HS PRN 12/28/20 12/28/20 History tablet metoprolol succinate 100 mg 200 mg PO DAILY 12/28/20 12/28/20 History tablet,extended release 24 hr (Toprol XL) multivitamin with minerals-folic 1 tab PO DAILY 12/28/20 12/28/20 History acid 200 mcg chewable tablet (Multivitamin Gummies) pantoprazole 40 mg tablet,delayed 40 mg PO BID 12/28/20 12/28/20 History release (Protonix) Patient History Medical History Allergic rhinitis Asthma COVID-19 GERD (gastroesophageal reflux disease) Hyperlipidemia Hypertension Insomnia Seizure disorder Social History Smoking Status: Light tobacco smoker Hx Alcohol Use: Yes Alcohol type: beer Hx Substance Use: No Preferred Language: Guinean Senior 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 Required: No Beliefs That Will Affect Care: None Current Living Situation: Alone Feels Safe at Home: Yes Safety Concerns: Feels Safe At This Time Assistive Devices: None Review of Systems Constitutional: no fever and no chills Eyes: no blind spots and no diplopia Ear, Nose, Mouth, Throat: no ear pain and no hearing loss Respiratory: no cough and no dyspnea Cardiovascular: no chest pain and no palpitations Gastrointestinal: no constipation and no diarrhea/loose stools Genitourinary: no urinary incontinence or no urinary urgency Musculoskeletal: no muscle weakness and no muscle atrophy Integumentary: no rash and no lesions Neurologic: as per Subjective / HPI Psychiatric: no behavioral changes, no depression, no abnormal sleep pattern and no anxiety Hematologic / Lymphatic: no easy bruising and no lymphadenopathy Exam (Neuro) Constitutional: well developed and well nourished; no acute distress Eyes: normal visual moss by confrontation, PERRL, normal accommodation and EOM intact bilaterally; no fundoscopic abnormality, no nystagmus and no papilledema Cardiovascular: Vessels: normal carotid upstroke; no carotid bruit Neurologic: Oriented to:: Person, Place and Time Memory: Short Term Intact and Remote Intact Attention: Span Intact and Concentration Intact Language: Naming Objects and Repeating Phrases Speech Fluency: negative Dysarthria Speech Aphasia: negative Aphasia Fund of Knowledge: Current Events, Past History and Vocabulary Cranial Nerves: Normal II (Visual moss full to confrontation, visual acuity normal), III, IV, (Pupils equal round reactive to light and accommodation, eye movements normal), V (Facial sensation intact), VII (There is no facial droop or weakness), VIII (Hearing intact), IX, X (Palate elevates to midline), XI (Shoulder shrug intact) and XII (Tongue protrudes to midline) Motor Strength: Normal Lower Extremities and Normal Upper Extremities; negative Pronator Drift Motor Tone: Normal Lower Extremities and Normal Upper Extremities Muscle Bulk/Involuntary Movements: No Involuntary Movements; negative Muscle Atrophy Sensation: Light Touch Intact, Pain/Temperature Intact, Vibration Intact and Proprioception Intact Coordination: Normal; negative Limited Balance, Dysdiadochokinesia, Finger-Nose Abnormal or Heel-Elizondo Abnormal Deep Tendon Reflexes: Rt Triceps: 2+, Lt Triceps: 2+, Rt Biceps: 2+, Lt Biceps: 2+, Rt Brachioradialis: 2+, Lt Brachioradialis: 2+, Rt Patellar: 2+, Lt Patellar: 2+, Rt Ankle: 2+ and Lt Ankle: 2+ Special Tests: negative Babinski Present Gait: Normal Station and Gait Results & Data ([facility]) Vital Signs (Past 12 Hours) Vital Signs Temp Pulse Pulse Resp BP BP BP 12/29/20 07:53 69 12/29/20 07:37 36.5 C 59 L 18 113/60 12/29/20 03:38 36.5 C 58 L 18 108/68 12/28/20 22:35 36.5 C 62 17 125/71 12/28/20 22:01 57 L 17 111/64 12/28/20 21:30 56 L 23 139/68 12/28/20 21:01 63 21 119/69 Pulse Ox 12/29/20 07:53 12/29/20 07:37 96 12/29/20 03:38 98 12/28/20 22:35 98 12/28/20 22:01 99 12/28/20 21:30 97 12/28/20 21:01 98 Laboratory Results WBC 8.37, hemoglobin 12.4, hematocrit 38.0, platelet count 351, sodium 140, potassium 3.4, BUN 14, creatinine 1.06, glucose 120, hemoglobin A1c 8.0, AST 90, ALT 192, triglycerides 207, cholesterol 229, LDL 159, VLDL 41, HDL 29, Lyme disease IgM antibody positive, SARS-CoV-[address] Findings [address] of the head and CT angiogram of the head and neck reviewed. No significant abnormalities. I reviewed the images as well as the radiologist interpretation of these tests. Electrocardiogram reveals a normal sinus rhythm with sinus arrhythmia, 75 bpm. Coding Level of Care Code 10634 Inpt Consult Level 5 Diagnoses Stroke-like symptoms R29.90
[2020-12-29] MEDS: DOXYCYCLINE HYCLATE 100 MG CAP PO SCH (09:21)
--- NOTE | 2020-12-29 11:06 | XRay Report ---
BONY ORBITS 3 VIEWS CLINICAL HISTORY: MRI clearance. FINDINGS: 3 views of the bony orbits are obtained. There is no radiodense/metallic foreign body seen in the region of the bony orbits. The bony orbits are intact as imaged. The visualized paranasal sinu ses and the mastoid air cells appear clear. The imaged calvarium appears intact. IMPRESSION: There is no radiodense/metallic foreign body seen in the region of the bony orbits. ACT 112: Negative or not required by law. Electronically signed by: Jin Schwartz M.D. 12/29/2020 11:05 AM
--- NOTE | 2020-12-29 11:54 | Magnetic Resonance Report ---
MRI OF THE BRAIN WITHOUT IV CONTRAST CLINICAL HISTORY: Transient ischemic attack. Right-sided facial numbness COMPARISON STUDY: CT of the brain dated 12/28/2020. TECHNIQUE: MRI of the brain was performed utilizing various T1 and T2-weighted sequences in the axial , sagittal, and coronal planes. IV contrast was not administered for this examination. FINDINGS: Brain parenchyma: The brain parenchyma is normal in appearance. There is no hemorrhage or mass effect . There is no restricted diffusion to suggest acute ischemia. Shay-white matter differentiation is pr eserved. No extra-axial fluid collection is seen. The cerebellar tonsils are normal in configuration. Ventricles, sulci, and cisterns: Normal in configuration. Pituitary and sella: There is nonspecific prominence of the pituitary gland with a convex superior ma rgin. Intracranial vasculature: Normal flow voids are maintained at the skull base. Orbits: The bony orbits are grossly intact. Orbital contents are normal in appearance. Sinuses and mastoids: There is trace mucosal thickening within the left maxillary antrum and the left ethmoid sinuses. The remaining paranasal sinuses are clear. There is trace left mastoid effusion. Th e right mastoid air cells are clear. Calvarium: Unremarkable. Cervical cord: Partially visualized cervical spinal cord is normal in morphology and signal intensity . IMPRESSION: No acute intracranial abnormality. ACT 112: Negative or not required by law. Electronically signed by: Jin Schwartz M.D. 12/29/2020 11:53 AM
--- NOTE | 2020-12-29 12:11 | XCELERA ---
[id number]
[2020-12-29] MEDS ORDERED: STROKE PATIENT DISCHARGE STA (13:34)
--- NOTE | 2020-12-29 18:41 | Discharge Summary ---
Date of Service December 29, 2020 Admission HPI Per Admitting Provider The patient is a 35-year-old male with a past medical history including hypertension, hyperlipidemia, asthma, seizure disorder, and GERD. He also has a significant history of a 3-week intensive care stay in [facility] due to COVID-19 pneumonia, where he was intubated and reportedly had multiorgan system failure. He reports his laboratories and general health have completely recovered, and review of his lab work on his phone showed normal laboratories including a creatinine of 1.04. Work-up in the emergency department included a CT of head without contrast which was negative. CTA of head neck was negative. Significant laboratories: Hemoglobin 12.8, hematocrit 38.3, creatinine 1.68, glucose 131, AST 90, ALT 192. Lyme disease IgM antibody was positive, Lyme IgG was negative. COVID-19 test was negative Principal Diagnosis Cranial nerve changes associated with acute Lyme disease infection Possible pulmonary or PFO shunt detected on echocardiogram CVA ruled out Discharge Exam The patient appeared well facial drooping has completely resolved Vital signs as documented. Lungs are clear to auscultation and appear unlabored Cardiac exam, Rhythm is regular.. No murmurs, rubs or gallops. Abdominal exam reveals normal bowel sounds, soft non tender, no masses Extremities are nonedematous and both pedal pulses are normal. Neurologic exam is alert and oriented, no focal loss of strength or sensation Skin is without bruises or rashes Psychologically is without concerns for anxiety or depression. Discharge Data Allergies Allergy/AdvReac Type Severity Reaction Status Date / Time No Known Allergies Allergy Verified 12/28/20 23:26 Consultations 12/28/20 20:18 ED Decision to Admit Stat 12/28/20 22:50 Consult Neurology Routine Ordered Studies 12/28/20 17:58 CT head/brain wo con Stat 12/28/20 18:02 CT angio head w con Stat CT angio neck with con Stat 12/29/20 09:19 MR brain wo con Routine Hospital Course (1) Acute Lyme disease: IgM positive, IgG negative in the ED this evening he received some c eftriaxone while in the hospital will eventually He discharged on doxycycline 100 mg p.o. twice daily completing a 2-week course (2) Stroke-like symptoms: Patient presented to the ED with symptoms suggestive of stroke and began as a stroke alert. CVA has been ruled out patient is been seen by neurology they feel his neurological symptoms are likely resultant to the Lyme disease Order MRI brain without contrast no evidence of acute CVA Echocardiogram has concerns for pulmonary shunt or PFO will continue on recommend aspirin dosing and follow-up with cardiology. He is given his echocardiogram disc to take home to [facility] (3) Right facial numbness: Resolved (4) Hyperlipidemia: Continue atorvastatin 20 mg at bedtime. (5) Asthma: Continue Symbicort (6) Hypertension: Continue amlodipine, losartan and metoprolol succinate (7) Seizure disorder: Continue Keppra (8) GERD (gastroesophageal reflux disease): Continue pantoprazole (9) Insomnia: Continue melatonin Total Time Total Time Spent Total Time Spent (In Minutes): It required greater than 30 minutes to prepare this patient for discharge Discharge Plan Discharge Items Patient Disposition: Home - Self-Care Reason For Visit: R FACIAL NUMBNESS, ACUTE LYME, TONIA Discharge Diagnosis: lyme disease infection small intracardiac shunt Condition on Discharge: Fair Activity: Resume your previous activity Non-emergency contact: Primary Care Provider and Tea Blender Call non-emergency contact if: your symptoms worsen Follow-up/Referrals: PCP,NO [Primary Care Provider] - Diet: Regular Addtl Attending Provider Instructions: please finish all of your antibiotic to treat you [place] disease ON your echo there was a suggestion of a small connection from the right side to the left side of your heart, this can be a normal development. This could represent a pulmonary shunt vs a patent foramen ovale. We recommend that you take a baby aspirin each day and follow up [facility], we will give you a disc to take home with you Pending Studies at Discharge: No Stand-Alone Forms: [facility], Work/School Release, Smoking Cessation Medications and DC Order Prescriptions: New doxycycline hyclate 100 mg Capsule 100 mg PO BID@1000,2200 Qty: 28 RF: 0 Continued atorvastatin [Lipitor] 20 mg Tablet 20 mg PO HS RF: 0 metoprolol succinate [Toprol XL] 100 mg Tablet Extended Release 24 Hr 200 mg PO DAILY RF: 0 aspirin [Aspirin Low Dose] 81 mg Tablet,Delayed Release (Dr/Ec) 81 mg PO DAILY RF: 0 amlodipine 10 mg Tablet 10 mg PO DAILY RF: 0 pantoprazole [Protonix] 40 mg Tablet,Delayed Release (Dr/Ec) 40 mg PO BID RF: 0 losartan 100 mg Tablet 100 mg PO DAILY RF: 0 fluticasone propionate 50 mcg/actuation spray,suspension 1 spray INTRANASAL DAILY RF: 0 budesonide-formoterol [Symbicort] 160-4.5 mcg/actuation HFA aerosol inhaler 2 puff INHALATION BID RF: 0 Multivitamin Gummies 200 mcg Tablet,Chewable 1 tab PO DAILY RF: 0 melatonin 10 mg Tablet,Disintegrating 10 mg PO HS PRN (Reason: Sleep) RF: 0 Discontinued ibuprofen 200 mg Tablet 200 mg PO Q6H PRN (Reason: Pain) RF: 0 Discharge Orders: Discharge Order (Routine); Ordered 12/29/20 Ordered By: Anshul Krause Admission Data Admit Date/Time: 12/28/20 21:12 Attending Provider: Anshul Krause Admit Provider: Ronald Frazier Primary Care Provider: PCP,NO Other Providers: Ronald Frazier ; Michele Barker Other Interventions: Discharge Summary Assessment (RN) Last Done: 12/29/20 13:56 Coding Level of Care Code D/C DAY MANAGEMENT >30 MINS Diagnoses Acute Lyme disease A69.20 Stroke-like symptoms R29.90 Right facial numbness R20.0 Hyperlipidemia E78.5 Asthma J45.909 Hypertension I10 Seizure disorder G40.909 GERD (gastroesophageal reflux disease) K21.9 Insomnia G47.00
[2020-12-29] MEDS ORDERED: cefTRIAXone SODIUM 2,000 MG in DEXTROSE 5% 50 ML IV SCH (20:00)
[2020-12-29] MEDS ORDERED: ATORVASTATIN 20 MG TAB PO SCH (21:00)
--- NOTE | 2020-12-30 07:25 | Electrocardiogram Report ---
Test Reason : Blood Pressure : / mmHG Vent. Rate : 075 BPM Atrial Rate : 075 BPM P-R Int : 148 ms QRS Dur : 098 ms QT Int : 388 ms P-R-T Axes : 060 061 094 degrees QTc Int : 433 ms Normal sinus rhythm with sinus arrhythmia Nonspecific T wave abnormality Abnormal ECG No previous ECGs available Confirmed by Patrick Keller ([id number]) on 12/30/2020 7:25:15 AM Referred By: REFERRED SELF Confirmed By:Patrick Keller
[2020-12-31 17:31] LABS: 18KDIGG Band NON-REACTIVE; 23KDIGG Band NON-REACTIVE; 23KDIGM Band REACTIVE; 28KDIGG Band NON-REACTIVE; 30KDIGG Band NON-REACTIVE; 39KDIGG Band NON-REACTIVE; 39KDIGM Band NON-REACTIVE; 41KDIGG Band NON-REACTIVE; 41KDIGM Band NON-REACTIVE; 45KDIGG Band NON-REACTIVE; 58KDIGG Band NON-REACTIVE; 66KDIGG Band NON-REACTIVE; 93KDIGG Band NON-REACTIVE; Lyme Antibodies, WB IgG NEGATIVE (NEGATIVE); Lyme Antibodies, WB IgM NEGATIVE (NEGATIVE)
== END 2020-12-29 14:42 | disposition home or self-care (01) ==
LOC: 2S 17:35 → ED 17:35 → SUATTDRO 21:12 → 2S 12-29 00:23